=== PATIENT | male | born 1970 | race Caucasian/White ===

== ENCOUNTER 2021-01-10 10:11 | Emergency (ER) | payer OTHER, SELFPAY ==
[2021-01-10 10:24] VITALS: BP 153/90; PULSE 68; RESP 16; TEMP 36.5; O2SAT 96; BMI 29.8
[2021-01-10 10:33] VITALS: O2SAT 96
--- NOTE | 2021-01-10 10:41 | W.ED.EXTPRO ---
HPI - Extremity Problem General: Chief complaint: Extremity Injury, Lower Stated complaint: Left foot/Ankle pain Time Seen by Provider: 01/10/21 10:29 History of Present Illness: HPI Narrative: Patient is a 50-year-old male comes to the ED with left foot/ankle injury. Patient was carrying him a year outside of his house any was going down a couple steps. Patient says he missed a step and twisted his foot and ankle.. He has been having pain and swelling since injury. He has been able to weight-bear but he does say it causes some pain. The pain is located on the lateral aspect of the left foot. Associated symptoms: Deny chest pain, fever(s) or rash Review of Systems Const: Denies: fever(s), chills or fatigue Eyes: Denies: change in vision or eye discomfort ENMT: Denies: throat pain, odynophagia, nasal discharge or nasal congestion Card: Denies: chest pain, palpitations, edema, swelling of feet/ankles, dyspnea on exertion or orthopnea Resp: Denies: dyspnea, productive cough or non-productive cough GI: Denies: abdominal pain, nausea, vomiting, diarrhea, constipation or hematochezia : Denies: flank pain, difficulty urinating, dysuria or hematuria Musc: Reports: extremity pain (left foot/ankle) and extremity swelling (left foot/ankle); Denies: neck pain or back pain Skin/Breast: Denies: rash or new lesions Neuro: Denies: headache(s), numbness in extremities or weakness in extremities Physical Exam Const: COMMON NORMALS: no acute distress, patient oriented x3 and alert GENERAL APPEARANCE: cooperative and comfortable HENMT: COMMON NORMALS: normocephalic HEAD & SCALP: normocephalic MOUTH: Normal oral and palatal mucosa present THROAT: posterior oropharynx normal and uvula midline Neck/C-Spine: COMMON NORMALS: supple GENERAL: Yes normal visual inspection Resp: COMMON NORMALS: normal respiratory effort, No retractions, No use of accessory muscles and clear to auscultation bilaterally AUSCULTATION: clear to auscultation bilaterally Cardio: COMMON NORMALS: regular rate, regular rhythm, S1 normal heart sound present, S2 normal heart sound present, No gallops present (Cardio), No clicks present (Cardio), No murmurs present (Cardio) and Peripheral pulses 2+ throughout RATE: regular rate RHYTHM: regular rhythm HEART SOUNDS: S1 normal heart sound present and S2 normal heart sound present PERIPHERAL PULSES: Peripheral pulses 2+ throughout GI: COMMON NORMALS: Normal to inspection, nondistended, normoactive bowel sounds present, Soft to palpation, non-tender and no masses PALPATION: Yes Soft to palpation : COMMON NORMALS: Yes no CVA tenderness BLADDER/KIDNEY EXAM: Yes no CVA tenderness Back/Pelvis: COMMON NORMALS: no CVA tenderness Extremity: GENERAL: Yes normal exam except as noted LEFT LOWER EXTREMITY: Yes foot & digits Left foot and digits: Yes inspection (Mild swelling lateral aspect of foot. No deformity noted), Yes palpation (Tenderness over lateral aspect of midfoot.), Yes ROM (Full range of motion) and Yes neurovascular exam (Intact) Neuro: COMMON NORMALS: patient oriented x3 and moves all extremities SENSORIUM/ORIENTATION: Yes alert Skin: GENERAL SKIN EXAM: dry skin Course Vital Signs: Vital signs: Vital Signs Temperature 97.7 F 01/10/21 10:24 Pulse Rate 68 01/10/21 10:24 Respiratory Rate 16 01/10/21 10:24 Blood Pressure 153/90 01/10/21 10:24 Pulse Oximetry 96 01/10/21 10:33 MDM - Extremity (Nontraumatic) MDM Narrative: Medical decision making narrative: Patient is a 50-year-old female who comes to the ED with left foot injury. Exam shows left foot that is neurovascular tact with minimal swelling on the lateral aspect of left foot and some tenderness over the lateral aspect of left foot. X-ray of left ankle showed no acute ankle fracture but did note fracture at base of left fifth metatarsal. Patient was put in a stiff soled shoe. I placed an order with case management for patient to be referred to consumer affairs manager. Patient was discharged home with some crutches as well. Return to ED precautions given. Told case management specialist will contact him in the next several days set up an appointment with podiatry. Patient understood agree with plan. Imaging Data^: Xray Ortho: Attestation: I personally reviewed and interpreted this imaging study as follows: Radiologist's impression: [address] [place] [address] XRay Report Signed Patient: Denzel Hernadez Unit #: [id number] : 1970 Age/Sex: 50 / M ADM Date: 01/10/21 Loc: ER Room/Bed: Attending Dr: Ordering Provider/Ordering MD: Pb Kim Date of Service: 01/10/21 Procedure(s): XR ankle LT min 3V* [id number] Accession Number(s): [id number] Report Number: [id number] WS: [id number] Left ankle, 3 views, 01/10/2021 Clinical Data: left ankle injury with pain Comparison: None. Findings: There may be a fracture of the base of the left fifth metatarsal. No ankle fractures or dislocations are seen. The ankle mortise is normal. The talus and calcaneus are unremarkable. No soft tissue swelling over the medial or lateral malleolus is seen. There is a small Achilles spur. XR/XR ankle LT min 3V* [id number] Impression: 1. Possible fracture of base of left fifth metatarsal. 2. Negative left ankle. Dictated By: Nan Rock MD Signed By: Nan Rock MD Signed Date/Time: 01/10/21 1123 DD/ [id number] Discharge Plan Discharge Patient Disposition: Home Clinical Impression: Metatarsal bone fracture Qualifiers: Encounter type: initial encounter Metatarsal bone: fifth Fracture type: closed Fracture alignment: nondisplaced Laterality: left Qualified Code(s): S92.355A - Nondisplaced fracture of fifth metatarsal bone, left foot, initial encounter for closed fracture Condition: Stable Discharge Orders: Discharge ED (Routine); Ordered 01/10/21 Ordered By: Pb Kim Discharge Diet: Regular Discharge Activity: Limit activity as instructed Patient Instructions: Fractures - Metatarsal, Foot Fracture in Adults (ED) Activity Restrictions/Additional Instructions: Follow-up with medical provider as directed. workforce management manager will contact you in the next several days to set up an appointment with consumer affairs manager. Wear stiff soled shoe when ambulating. Take [id number] Tylenol or ibuprofen for any pain. Use crutches for the next couple days to allow for healing, then start weightbearing again but limit activity. return to the ER or your medical provider if condition worsens. Please read and understand discharge instructions. Thank you for choosing [facility] for your healthcare needs today. Please realize this is an emergency room and that we are providing you with a medical screening exam and this may not be complete and all inclusive of all the testing and or work up that you may need to determine your ailment or severity of your illness. It is very important that you follow up as instructed or that you return to the Emergency Department should you have concerns or if your condition changes or worsens in any way. Coding Level of Care Code ED Final Inspection Supervisor for Rasta Miranda Exam Comprehensive
--- NOTE | 2021-01-10 10:45 | XR_ITS ---
WS: [id number] Left ankle, 3 views, 01/10/2021 Clinical Data: left ankle injury with pain Comparison: None. Findings: There may be a fracture of the base of the left fifth metatarsal. No ankle fractures or dislocations are seen. The ankle mortise is normal. The talus and calcaneus are unremarkable. No soft tissue swelling over the medial or lateral malleolus is seen. There is a small Achilles spur. XR/XR ankle LT min 3V* [id number] Impression: 1. Possible fracture of base of left fifth metatarsal. 2. Negative left ankle.
--- NOTE | 2021-01-10 12:15 | DCPLANNER ---
loading manager had message to schedule a follow up appointment for patient with ortho for base of fifth metatarsal fracture. loading manager called the ortho clinic, spoke with Carmita, gave clinic patients information. loading manager was told that patients information would be printed and reviewed. Clinic will call patient with appointment information.
--- NOTE | 2021-01-15 08:08 | DCPLANNER ---
Patient has a follow up appointment scheduled for , January 17, 2021 at 10:[address] Miller. Clinic will call patient with appointment information.
--- NOTE | 2021-02-08 13:28 | DCPLANNER ---
Patient had a follow up appointment scheduled for 01.17.21 with ortho - patient did attend appointment.
== END 2021-01-10 12:11 | disposition home or self-care (01) ==
PROVIDERS: Emergency Provider Physician Assistant
DX: S92.355A Nondisplaced fracture of fifth metatarsal bone, left foot, initial encounter for closed fracture (principal); X50.1XXA Overexertion from prolonged static or awkward postures, initial encounter; Y92.009 Unspecified place in unspecified non-institutional (private) residence as the place of occurrence of the external cause
CPT/HCPCS: 73610; 99283; E0114

== ENCOUNTER → 2021-01-17 11:00 | Outpatient (BNVA) | payer OTHER, SELFPAY | PROVIDERS: Referring Provider Physician Assistant; Visit Provider Podiatrist Foot & Ankle Surgery | DX: S92.355A Nondisplaced fracture of fifth metatarsal bone, left foot, initial encounter for closed fracture (principal); X58.XXXA Exposure to other specified factors, initial encounter | CPT/HCPCS: 73630 ==

== ENCOUNTER 2021-01-17 14:27 | Outpatient (CLI) | payer OTHER, SELFPAY | END 2021-01-17 14:28 | disposition home or self-care (01) | LOC: SPT 14:28 | PROVIDERS: Visit Provider Podiatrist Foot & Ankle Surgery | DX: Z46.89 Encounter for fitting and adjustment of other specified devices (principal); S92.355D Nondisplaced fracture of fifth metatarsal bone, left foot, subsequent encounter for fracture with routine healing; X58.XXXD Exposure to other specified factors, subsequent encounter | CPT/HCPCS: 97760; L4361 ==

== ENCOUNTER → 2021-02-01 14:15 | Outpatient (BNVA) | payer OTHER, SELFPAY | PROVIDERS: Visit Provider Podiatrist Foot & Ankle Surgery | DX: S92.355A Nondisplaced fracture of fifth metatarsal bone, left foot, initial encounter for closed fracture (principal); S92.352A Displaced fracture of fifth metatarsal bone, left foot, initial encounter for closed fracture; X58.XXXA Exposure to other specified factors, initial encounter | CPT/HCPCS: 73630 ==

== ENCOUNTER → 2021-02-22 15:07 | Outpatient (BNVA) | payer OTHER, SELFPAY | PROVIDERS: Visit Provider Podiatrist Foot & Ankle Surgery | DX: S92.355A Nondisplaced fracture of fifth metatarsal bone, left foot, initial encounter for closed fracture (principal); S92.352A Displaced fracture of fifth metatarsal bone, left foot, initial encounter for closed fracture; X58.XXXA Exposure to other specified factors, initial encounter | CPT/HCPCS: 73630 ==

== ENCOUNTER → 2021-03-22 10:57 | Outpatient (BNVA) | payer OTHER, SELFPAY | PROVIDERS: Visit Provider Podiatrist Foot & Ankle Surgery | DX: S92.355A Nondisplaced fracture of fifth metatarsal bone, left foot, initial encounter for closed fracture (principal); X58.XXXA Exposure to other specified factors, initial encounter | CPT/HCPCS: 73630 ==

== ENCOUNTER → 2022-06-28 12:23 | Outpatient (BNVA) | payer OTHER, SELFPAY | PROVIDERS: Visit Provider Nurse Practitioner Family | DX: J02.9 Acute pharyngitis, unspecified (principal); B34.9 Viral infection, unspecified; I10 Essential (primary) hypertension | CPT/HCPCS: 87071; 87880 ==